=== PATIENT | female | born 1990 | race Caucasian/White ===

== ENCOUNTER 2022-08-25 08:31 | Inpatient (IN) | payer OTHER ==
[~2022-08-25] VITALS: Ht 149.9 cm; Wt 71.0 kg
[2022-08-25] VITALS (400 sets, daily range): BP systolic 80–124; BP diastolic 37–76; PULSE 100–112; TEMP 98.1–100.3; O2SAT 97–100
[2022-08-25 09:16] LABS: ALBUMIN 2.6 gm/dL (3.5-5.0); BILIRUBIN,TOTAL 0.2 mg/dL (0.2-1.2); CALCIUM 7.3 mg/dL (8.4-10.2); CREATININE, serum 0.71 mg/dL (0.57-1.11); POTASSIUM 3.4 mmol/L (3.5-4.5); TOTAL PROTEIN 4.4 gm/dL (6.2-8.1)
[2022-08-25 12:38] LABS: HEMOGLOBIN 14.1 g/dl (12.5-16.0); MEAN CELL VOLUME 96 fl (80.0-100.0); MEAN CORPUSCULAR HEMOGLOBIN 32 pg (27-31); MEAN CORPUSCULAR HGB CONC 33 g/dl (33.0-37.0); MEAN PLATELET VOLUME 10.8 fl (7.4-10.4); PLATELET COUNT 151 K/mm3 (130-400); RED BLOOD COUNT 4.48 M/mm3 (4.10-5.30); REDCELL DISTRIBUTION WIDTH-CV 13.7 % (11.5-14.5)
[2022-08-25 13:06] LABS: BAND 12 % (0-10); EOSINOPHIL 1 % (0-4); LYMPHOCYTE 11 % (20.0-51.0); NEUTROPHILS 75 % (42.0-75.2)
[2022-08-25 13:07] LABS: PLATELET ESTIMATE NORMAL (NORMAL)
[2022-08-25 14:16] LABS: HEMATOCRIT 38.1 % (37.0-47.0); HEMOGLOBIN 13.5 g/dl (12.5-16.0); MEAN CORPUSCULAR HEMOGLOBIN 32 pg (27-31); MEAN CORPUSCULAR HGB CONC 35 g/dl (33.0-37.0); MEAN PLATELET VOLUME 10.3 fl (7.4-10.4); PLATELET COUNT 135 K/mm3 (130-400); RED BLOOD COUNT 4.23 M/mm3 (4.10-5.30); REDCELL DISTRIBUTION WIDTH-CV 13.3 % (11.5-14.5)
[2022-08-25 14:18] LABS: MEAN CELL VOLUME 90 fl (80.0-100.0)
[2022-08-25 14:31] LABS: ALBUMIN 2.6 gm/dL (3.5-5.0); BILIRUBIN,TOTAL 0.8 mg/dL (0.2-1.2); CALCIUM 6.6 mg/dL (8.4-10.2); CREATININE, serum 0.62 mg/dL (0.57-1.11); POTASSIUM 4.8 mmol/L (3.5-4.5); TOTAL PROTEIN 4.3 gm/dL (6.2-8.1)
[2022-08-25 14:41] LABS: BAND 19 % (0-10); LYMPHOCYTE 5 % (20.0-51.0); NEUTROPHILS 73 % (42.0-75.2); PLATELET ESTIMATE NORMAL (NORMAL)
[2022-08-25 16:05] LABS: IRON,SERUM 220 ug/dL (50-175)
[2022-08-25 17:36] LABS: HEMOGLOBIN 13.1 g/dl (12.5-16.0)
--- NOTE | 2022-08-25 20:50 | NUR ---
THIS NURSE TO ICU WITH Ginna WEISS SQUEAK R[employer] AND LEAK REPAIRER TO TRANSFER PT FROM ICU TO OB. PT STATES SHE WANTS TO ATTEMPT TO USE THE BATHROOM PRIOR TO LEAVING THE ICU. PT ABLE TO AMBULATE WITH ASSISTANCE TO THE TOILET BUT WAS UNABLE TO VOID AT THIS TIME. ASSISTED TO WHEELCHAIR AND TRANSFERRED TO OB @ 2100. VOICE METEOROLOGICAL OBSERVER SERVICE USED, METEOROLOGICAL OBSERVER # [id number] ([id number]). PT RATES PAIN IN UPPER ABDOMEN AT 5-6/10. DISCUSSED PREFERENCES FOR PAIN MANAGEMENT, PT REQUESTS TYLENOL AT THIS TIME. DISCUSSED PLAN OF CARE, WILL NEED TO VOID, AMBULATE, AND ADVANCE DIET TOLERATED. IF ABLE TO DO THESE THINGS AND KEEP PAIN CONTROLLED DISCHARGE IS LIKELY TO OCCUR TOMORROW. ASSESSMENT PERFORMED. PT AND SPOUSE VERBALIZED UNDERSTANDING. QUESTIONS ENCOURAGED AND ANSWERED. CALL ENDED WITH METEOROLOGICAL OBSERVER.
[2022-08-26 00:28] VITALS: BP 112/62; PULSE 92; TEMP 98.1
--- NOTE | 2022-08-26 02:35 | NUR ---
PT ABLE TO AMBULATE UNIT WITHOUT DIFFICULTY. THIS NURSE AND SPOUSE AT PT SIDE SHE WALKS. UPON RETURNING TO ROOM PT ABLE TO VOID FOR THE 3RD TIME SINCE ARRIVING TO THE UNIT. SANDWICH BOX PROVIDED PER PT REQUEST, TOLERATED WELL.
[2022-08-26 04:50] VITALS: BP 92/51; PULSE 111; TEMP 98.4
[2022-08-26 07:03] VITALS: BP 101/59; PULSE 104; TEMP 98.8
[2022-08-26 07:04] LABS: BASO # 0.1 K/mm3 (0.0-0.2); BASO % 0.5 % (0.0-2.0); EOS % 0.3 % (0.0-4.0); GRAN # 7.3 K/mm3 (1.4-6.5); GRAN % 72.6 % (42.2-75.2); LYMPH # 1.9 K/mm3 (1.2-3.4); MEAN CELL VOLUME 87 fl (80.0-100.0); MEAN CORPUSCULAR HGB CONC 37 g/dl (33.0-37.0); MEAN PLATELET VOLUME 10.5 fl (7.4-10.4); MONO # 0.7 K/mm3 (0.1-0.6); MONO % 6.8 % (1.7-9.3); PLATELET COUNT 124 K/mm3 (130-400); RED BLOOD COUNT 2.94 M/mm3 (4.10-5.30)
[2022-08-26 07:08] LABS: HEMATOCRIT 25.6 % (37.0-47.0); MEAN CORPUSCULAR HEMOGLOBIN 32 pg (27-31)
[2022-08-26 07:10] LABS: ALBUMIN 2.5 gm/dL (3.5-5.0); BILIRUBIN,TOTAL 0.7 mg/dL (0.2-1.2); CALCIUM 7.2 mg/dL (8.4-10.2); CREATININE, serum 0.65 mg/dL (0.57-1.11); POTASSIUM 3.4 mmol/L (3.5-4.5); TOTAL PROTEIN 4.3 gm/dL (6.2-8.1)
[2022-08-26 07:11] LABS: HEMOGLOBIN 9.4 g/dl (12.5-16.0)
[2022-08-26] MEDS ORDERED: IBU600 MG PO (08:56)
[2022-08-26] MEDS ORDERED: ROXICODONE 55 MG/TAB PO (08:56)
--- NOTE | 2022-08-26 11:30 | NUR ---
1000 PT AND SPOUSE GIVEN BOTH WRITTEN AND VERBAL DISCHARGE INSTRUCTIONS AT THIS TIME. PT DECLINED USE OF DOPSTER FOR DISCHARGE INSTRUCTIONS. PT VERBALIZES UNDERSTANDING AND HAS NO QUESTIONS AT THIS TIME.
--- NOTE | 2022-08-26 12:29 | NUR ---
Initial visit; Patient resting, Jail Officer left card offering God's Peace and information regarding the availability of Spiritual Care at our hospital.
== END 2022-08-26 10:55 | disposition home or self-care (01) | DRG 817 ==
LOC: COL.ER 08:31 → EDBD 08:31 → INPTSU 09:07 → COL.ER 09:24 → ICU 12:56 → OB 18:47 → ICU 18:47 → OB 21:00
PROVIDERS: Emergency Medicine; Internal Medicine; ADMIT Obstetrics & Gynecology
PROC: 0UT54ZZ Resection of Right Fallopian Tube, Percutaneous Endoscopic Approach (ICD-10-PCS; principal; 2022-08-25 10:00)
DX: O00.101 Right tubal pregnancy without intrauterine pregnancy (principal); A41.9 Sepsis, unspecified organism; K66.1 Hemoperitoneum; O08.1 Delayed or excessive hemorrhage following ectopic and molar pregnancy; O08.5 Metabolic disorders following an ectopic and molar pregnancy; O08.82 Sepsis following ectopic and molar pregnancy; O08.89 Other complications following an ectopic and molar pregnancy; D72.829 Elevated white blood cell count, unspecified; Z3A.08 8 weeks gestation of pregnancy
CPT/HCPCS: J0696; J2270; J2370; J2405; J2704; J2710; J3010; J7030; J7040; J7120; P9016